=== PATIENT | female | born 1990 | race American Indian/Alaskan Native ===

== ENCOUNTER 2017-07-16 18:37 | Emergency (ER) | payer OTHER ==
[2017-07-16 20:22] LABS: BASO % 0.2 % (0.0-2.0); EOS # 0.1 K/uL (0.0-0.7); EOS % 1.1 % (0.0-4.0); HEMATOCRIT 35.7 % (34.0-47.0); LYMPH # 3.9 K/uL (1.0-4.3); LYMPH % 30.6 % (20.0-40.0); MEAN CELL VOLUME 82.3 fL (81.0-99.0); MEAN CORPUSCULAR HEMOGLOBIN 27.2 pg (27.0-31.0); MEAN PLATELET VOLUME 7.9 fL (7.2-11.7); MONO # 0.6 K/uL (0.0-0.8); MONO % 5.2 % (0.0-10.0); RED CELL DISTRIBUTION WIDTH 16.2 % (11.5-14.5); WHITE BLOOD COUNT 12.6 K/uL (4.8-10.8)
[2017-07-16 20:27] LABS: CHLORIDE 100 mmol/L (98-107); POTASSIUM 3.9 mmol/L (3.6-5.2); SODIUM 133 mmol/L (132-148)
[2017-07-16 20:29] LABS: AST/SGOT 24 U/L (14-36); BILIRUBIN,TOTAL 0.4 mg/dL (0.2-1.3); CARBON DIOXIDE 23 mmol/L (22-30); GFR AFRICAN-AMERICAN > 60
[2017-07-16 20:30] LABS: ALKALINE PHOSPHATASE 68 U/L (38-126); ALT/SGPT 30 U/L (9-52); BLOOD UREA NITROGEN 12 mg/dL (7-17); CALCIUM 9.4 mg/dl (8.6-10.4); GLUCOSE,RANDOM 83 mg/dL (65-105)
--- NOTE | 2017-07-16 20:43 | C.PDOC ---
History Of Present Illness 26 year old female with a Hx of HTN who is 6 weeks , P:0 A:3, presents to the ER with a complaint of abdominal pain and vaginal spotting that began at approximately 17:30. Patient reports she had an US done 1 week ago that showed a normal . Denies fever, nausea, or vomiting. Time Seen by Provider: 07/16/17 19:18 Chief Complaint (Nursing): Female Genitourinary History Per: Patient History/Exam Limitations: no limitations Onset/Duration Of Symptoms: Hrs, Sudden Onset Current Symptoms Are (Timing): Still Present Recent travel outside of the [place]: No Past Medical History Reviewed: Historical Data, Nursing Documentation, Vital Signs Vital Signs: Last Vital Signs Temp 98.2 F 07/16/17 22:40 Pulse 90 07/16/17 22:40 Resp 18 07/16/17 22:40 BP 132/81 07/16/17 22:40 Pulse Ox 100 07/16/17 23:22 - Medical History PMH: Asthma, HTN, Hyperlipidemia, Multiple Sclerosis Surgical History: Tonsillectomy (2006) Family History: States: Unknown Family Hx - Social History Hx Tobacco Use: No Hx Alcohol Use: Yes Hx Substance Use: No - Immunization History Hx Tetanus Toxoid Vaccination: No Hx Influenza Vaccination: No Hx Pneumococcal Vaccination: No Review Of Systems Except As Marked, All Systems Reviewed And Found Negative. Constitutional: Negative for: Fever Gastrointestinal: Positive for: Abdominal Pain. Negative for: Vomiting Genitourinary: Positive for: Other (Vaginal spotting) Physical Exam - Physical Exam Additional Physical Exam Comments: Constitutional: No acute distress. Head: Normocephalic. Atraumatic. Eyes: PERRL. EOMI. ENT: Moist mucous membranes. Neck: Supple. Cardiovascular: Regular rate. Radial pulses 2+ bilaterally. Chest: No tenderness. Respiratory: Clear to auscultation bilaterally. GI: Soft. Nontender. Nondistended. Back: No CVA tenderness. Musculoskeletal: No tenderness or swelling of extremities. Skin: No rash. Neurologic: Alert, no focal deficit. ED Course And Treatment - Laboratory Results Result Diagrams: 07/16/17 20:11 07/16/17 20:11 O2 Sat by Pulse Oximetry: 100 (Room air) Pulse Ox Interpretation: Normal Medical Decision Making Medical Decision Making: Plan: * Blood work * Urinalysis * Urine Culture * US Mild nonspecific leukocytosis 12.6 Chemistry unremarkable. Blood O+ US Results: FINDINGS: Gestation: A single intrauterine gestation is identified with a crown-rump length measuring 8.4 mm, corresponding to an approximate gestational age of 6 weeks and 5 days. cardiac activity is identified and are to 117 beats per minute. Placenta/amniotic fluid: Cannot be adequately evaluated due to the early gestational age. Uterus/cervix: Cervix measures 3.6 cm, and is closed. Ovaries: The bilateral ovaries are unremarkable in echogenicity and size. Free fluid: No free fluid. IMPRESSION: Single intrauterine gestation with an approximate gestational age of 6 weeks and 5 days. cardiac activity is identified. The cervix is closed. Disposition - Disposition Disposition: HOME/ ROUTINE Disposition Time: 21:47 Condition: STABLE Instructions: Threatened Miscarriage (ED) Forms: etrigg (Honduran) - Clinical Impression Clinical Impression: Vaginal bleeding in patient at less than 20 weeks gestation - Scribe Statement The provider has reviewed the documentation as recorded by the Scribayden Erickson All medical record entries made by the Scribe were at my direction and personally dictated by me. I have reviewed the chart and agree that the record accurately reflects my personal performance of the history, physical exam, medical decision making, and the department course for this patient. I have also personally directed, reviewed, and agree with the discharge instructions and disposition.
[2017-07-16 21:56] LABS: RBC URINE 14 /hpf (0-3); URINE BACTERIA RARE (<OCC); URINE BILIRUBIN NEGATIVE (NEGATIVE); URINE BLOOD 2+ (NEGATIVE); URINE COLOR Yellow (YELLOW); URINE GLUCOSE (UA) NORMAL (Normal); URINE KETONE NEGATIVE (NEGATIVE); URINE LEUKOCYTE ESTERASE NEG Leu/uL (Negative); URINE PROTEIN NEGATIVE (NEGATIVE); URINE UROBILINOGEN NORMAL mg/dL (0.2-1.0); WBC URINE 4 /hpf (0-5)
[2017-07-16 22:42] VITALS: BP 132/81; PULSE 90; RESP 18; TEMP 98.2
[2017-07-16 23:22] VITALS: O2SAT 100
--- NOTE | 2017-07-17 10:44 | US ---
PROCEDURE: OB Pelvic Ultrasound HISTORY: vag bleed in , assess cervix COMPARISON: None available. FINDINGS: UTERUS: Gestational sac: Single intrauterine gestation. Heart rate: 117 bpm. age (Ultrasound estimated): 6 weeks 3 days +/- 0 weeks 3 days Altagracia-gestational hemorrhage: None. Date of delivery (Ultrasound estimated) : 03/08/2018 Uterus measures 7.9 x 4.1 x 4.9 cm. Normal in size and appearance. CERVIX: Long and closed. No cervical abnormality seen. RIGHT OVARY: Measures 3.3 x 1.7 x 3.1 cm. No mass lesion. Normal flow. LEFT OVARY: Measures 2.9 x 2.6 x 2.3 cm. No solid mass. Normal flow. FREE FLUID: None. OTHER FINDINGS: None. IMPRESSION: Single intrauterine live with ultrasound estimated gestational age of 6 weeks 3 days +/-0 weeks 3 days. Estimated date of delivery by ultrasound is 03/08/2018. No ultrasound evidence of acute pathology.
== END 2017-07-16 23:53 | disposition home or self-care (01) ==
LOC: C.ER 18:37
DX: O46.91 Antepartum hemorrhage, unspecified, first trimester (principal); Z3A.01 Less than 8 weeks gestation of pregnancy